=== PATIENT | male | born 1960 | race Caucasian/White ===

== ENCOUNTER 2018-12-31 19:31 | Emergency (ER) | payer BC, OTHER ==
[2018-12-31 19:39] VITALS: TEMP 98.2
[2018-12-31 20:24] LABS: ALBUMIN 3.9 gm/dl (3.4-5.0); BILIRUBIN,TOTAL 0.6 mg/dl (0.2-1.0); CALCIUM 8.5 mg/dl (8.5-10.1); CARBON DIOXIDE 27.6 mEq/L (21-32); CREATININE 1.12 mg/dl (0.80-1.30); TOTAL PROTEIN 7.4 gm/dl (6.4-8.2)
[2018-12-31 20:25] LABS: BASOPHILS % (AUTO) 2 % (0-3); EOSINOPHILS % (AUTO) 3 % (0-9); HEMATOCRIT 42 % (39-53); HEMOGLOBIN 13.7 gm/dl (13.5-17.7); MEAN CORPUSCULAR HEMOGLOBIN 30.2 pg (27.0-32.0); MEAN CORPUSCULAR HGB CONC 32.5 gm/dl (32.0-36.0); MEAN CORPUSCULAR VOLUME 93 fL (80-100); MONOCYTES % (AUTO) 8.1 % (0-12); NEUTROPHILS % (AUTO) 65.6 % (37-80)
[2018-12-31 21:03] LABS: APPEARANCE,URINE Clear; BILIRUBIN,URINE NEGATIVE (NEGATIVE); COLOR,URINE Yellow; GLUCOSE, URINE (UA) NEGATIVE (NEGATIVE); KETONES,URINE NEGATIVE (NEGATIVE); LEUKOCYTE ESTERASE ,URINE NEGATIVE (NEGATIVE); NITRATE,URINE NEGATIVE (NEGATIVE); OCCULT BLOOD,URINE NEGATIVE (NEG-TRACE); PH,URINE 5.5; UROBILINOGEN,URINE 0.2 (0.2-1.0 EU)
[2018-12-31 21:17] LABS: BACTERIA TRACE (< 1+); CRYSTALS NEGATIVE (0-3 AVE/HPF); EPITHELIAL CELLS NEGATIVE (SQUAMOUS); RBC,URINE 0-1 (0-3AV/HPF); WBC,URINE 0-1 (0-5AV/HPF)
[2018-12-31 22:57] VITALS: RESP 16
[2018-12-31 22:58] VITALS: BP 114/68; PULSE 54; O2SAT 97
== END 2018-12-31 22:10 | disposition home or self-care (01) | DRG 948 ==
LOC: ED 19:31
DX: R52 Pain, unspecified (principal); R10.9 Unspecified abdominal pain; R39.12 Poor urinary stream
CPT/HCPCS: 74177; 80053; 81001; 85025; 99282; 99283; Q9967